=== PATIENT | female | born 1990 | race Caucasian/White ===

== ENCOUNTER 2019-02-09 13:20 | Emergency (ER) | payer OTHER ==
[~2019-02-09] VITALS: Ht 165.1 cm; Wt 77.6 kg
[2019-02-09] MEDS ORDERED: TRAMADOL 50 MG50 MG PO (14:04)
[2019-02-09] MEDS ORDERED: IBUPROFEN 800800 M1 PO (14:04)
[2019-02-09] MEDS ORDERED: FLEXERIL PO (14:04)
[2019-02-09] MEDS ORDERED: MEDROLDOSEPACK PO (14:04)
[2019-02-09 14:20] VITALS: BP 135/71
== END 2019-02-09 14:21 | disposition home or self-care (01) ==
LOC: M.ERS 13:20
DX: G89.29 Other chronic pain (principal); M54.5 Low back pain